=== PATIENT | female | born 1985 | race Caucasian/White ===

== ENCOUNTER 2016-12-02 01:45 | Emergency (ER) | payer OTHER ==
[~2016-12-02] VITALS: Ht 149.9 cm; Wt 52.7 kg
[~2016-12-02 01:45] MED LIST: FLEXERIL10 MG PO; KEFLEX500 MG PO; MOTRIN600 MG PO
[2016-12-02 02:56] LABS: HEMATOCRIT 37.9 % (36.0-46.0); MCHC 33.5 G/DL (30.0-36.0); MCV 86.5 FL (83-99); MEAN PLAT.VOLUME 9.5 uM^3 (9.5-12.4); PLATELET COUNT 362 K/uL (156-360); RBC DIS.WIDTH-CV 12.7 % (11.8-14.6); RBC DIS.WIDTH-SD 40.3 % (39-53); RED BLOOD COUNT 4.38 M/uL (3.80-5.20); WHITE BLOOD COUNT 9.5 K/uL (4.1-10.2)
[2016-12-02 03:05] LABS: CHLORIDE 104 mEq/L (99-109); POTASSIUM 4.2 mEq/L (3.7-5.4); SODIUM 139 mEq/L (136-147)
[2016-12-02 03:07] LABS: GLUCOSE 98 mg/dL (70-99)
[2016-12-02 03:08] LABS: ANION GAP 8 MEQ/L (2-14)
[2016-12-02 03:09] LABS: TOTAL BILIRUBIN 0.1 mg/dL (0.0-1.0)
[2016-12-02 03:10] LABS: ALKALINE PHOSPHATASE 58 IU/L (3-129)
[2016-12-02 03:11] LABS: GFR ESTIMATE (CALCULATED) > 59 mL/min/
[2016-12-02 03:12] LABS: UREA NITROGEN (BUN) 18 mg/dL (9-23)
[2016-12-02 03:14] LABS: LIPASE 86 U/L (1.0-51.0)
[2016-12-02 03:19] LABS: QUANTITATIVE HCG < 4.0 MIU/ML
[2016-12-02 04:19] LABS: ADD MIUA? YES; BILIRUBIN NEGATIVE; BLOOD SMALL; COLOR YELLOW ((YELLOW)); GLUCOSE (STRIP) NEGATIVE; KETONES NEGATIVE; LEUKOCYTES NEGATIVE; NITRITE NEGATIVE; PROTEIN (STRIP) NEGATIVE; UROBILINOGEN 0.2 MG/DL (0.2-1.0)
[2016-12-02] MEDS ORDERED: LORCET 5-325 M1 EACH PO (04:31)
[2016-12-02] MEDS ORDERED: BENTYL20 MG PO (04:31)
[2016-12-02 04:52] LABS: BACTERIA RARE /HPF; EPITHELIAL CELLS 3+ /HPF; MUCUS TRACE /LPF; UCUL ADDED? NO; WHITE BLOOD CELLS 0-5 /HPF (0-5)
[2016-12-02 05:00] VITALS: BP 124/61
== END 2016-12-02 05:01 | disposition home or self-care (01) ==
LOC: EME 01:45
PROVIDERS: Emergency Medicine
DX: R10.32 Left lower quadrant pain (principal); M54.42 Lumbago with sciatica, left side; G89.29 Other chronic pain; R11.2 Nausea with vomiting, unspecified; R50.9 Fever, unspecified
CPT/HCPCS: 74177; 80053; 81003; 83690; 84702; 85027; 99281; 99284; J1885; J2405; J7030